=== PATIENT | male | born 1990 | race Caucasian/White ===

== ENCOUNTER 2016-09-06 20:48 | Inpatient (IN) ==
--- NOTE | 2016-09-06 22:26 | Emergency Department Note ---
Disposition Clinical Impression: Pain and swelling of left ankle Disposition: Admitted As Inpatient Condition: Good Time of Disposition: 07:23 Lower Extremity Injury HPI - General Chief Complaint: ED Extremity Injury, Lower Stated Complaint: left ankle injury 3 days ago Time Seen by Provider: 09/06/16 22:08 Source: patient Limitations: no limitations Nursing Notes Reviewed: Yes Vital Signs Reviewed: Yes - History of Present Illness Pt Subjective Complaint: ankle injury Injury location: Left ankle Onset (ago): day(s) Mechanism of Injury: unknown Context: other (was laying supine working under car and pushed hit foot against wheel causing it to twist and jam under the wheel; no crush injury) Place: home Worsens with: weight bearing, movement, palpation Associated symptoms: Reports: swelling, other (erythema) Treatments prior to arrival: splint - Related Data Home Medications Medication Instructions Recorded Confirmed Buprenorphine HCl/Naloxone HCl 1 film PO BID 09/07/16 09/07/16 [Suboxone 8 mg-2 mg Sl Film] Allergies Allergy/AdvReac Type Severity Reaction Status Date / Time No Known Allergies Allergy Verified 09/07/16 07:31 All systems ED: reviewed and negative except as stated. Constitutional: Reports: fever, chills Eyes: Denies: eye discharge ENT ED: Denies: throat pain Cardiovascular: Denies: chest pain, palpitations Respiratory: Denies: cough, dyspnea, wheezes Gastrointestinal: Denies: abdominal pain, nausea, vomiting Genitourinary: Denies: dysuria Musculoskeletal: Denies: back pain, neck pain Integumentary: Denies: rash Neurological: Denies: headache Psychiatric: Denies: anxiety Endocrine: Denies: fatigue Hematological/Lymphatic: Denies: easy bleeding Allergic/Immunologic: Denies: facial swelling Past Medical History - Past Medical History Medical history: Reports: no medical history Psychiatric history: Reports: no psych history - Social History Smoking Status: Current every day smoker Smokeless Tobacco Status: No Alcohol use: Reports: none Drug use: Reports: none Physical Exam - General Limitations: no limitations General appearance: alert, in no apparent distress - Head Head exam: normocephalic - Eye Eye exam: Present: EOMI - ENT ENT exam: mucous membranes moist - Neck Neck exam: Present: full ROM - Chest Chest inspection: Present: symmetric chest wall rise - Respiratory Respiratory exam: Absent: respiratory distress - Cardiovascular Cardiovascular exam: Present: normal rhythm - Abdominal Exam Abdominal exam: Present: soft, Non-Tender - Expanded Lower Extremity Exam Hip/Pelvis exam: Present: full ROM Upper leg exam: Present: full ROM Knee exam: Present: normal inspection, full ROM. Absent: tenderness Lower leg exam: Present: normal inspection, full ROM. Absent: tenderness Ankle exam: Present: tenderness (Lateral malleolus), swelling (Lateral malleolus ), erythema (Lateral malleolus). Absent: full ROM (Active passive range of motion limited due to pain) Foot/toe exam: Present: normal inspection, full ROM. Absent: tenderness Neurovascular/Tendon exam: Present: normal capillary refill. Absent: pulse deficit, motor deficit, sensory deficit Gait: observed and limited by pain - Back Exam Back exam: Present: full ROM - Neurological Exam Neurological exam: Present: alert, oriented X3 - Psychiatric Psychiatric exam: Present: normal affect, normal mood, depressed - Skin Skin exam: Present: warm, dry, intact, normal color. Absent: rash, cyanosis, diaphoresis Course Course Narrative: 26-year-old male smoker presents with left ankle pain. He states he had injured this ankle approximately 3 days ago. Car. He describes anxiety pain working underneath a car and went to push off with his foot against the tire which then twisted and jammed and are ruled out forcefully. He states the pain at that time was around 110. His pain is worsened now to 6 out of 10 and is kept in with redness and swelling to his prior visit to the emergency department. He said the pain has not improved while using a walking boot or after he applied a bandage. X-rays were ordered upon triage. I reviewed the images and radiology report negative for any osseous abnormalities. Patient seen and examined. Swelling and erythema to the lateral malleolus. Range of motion is limited due to pain. There is also warmth. Patient also has subjective fevers. He also describes the pain and swelling worsening since the injury, most notably yesterday and today. Does not have any previous diagnosis of diabetes however does mention recent increase in urination. Denies any previous infections, or illnesses. With negative x-rays, and atypical mechanism of injury for neck sprain, this point I feel patient's ankle pain which is worsening is concerning for septic joint. Her initial lab work, an Accu-Chek to evaluate for diabetes. Analgesics ordered. - Reevaluation(s) Reevaluation #1: This time patient's lab work is now available. There is a delay in the results of the CBC. Patient does have a slightly elevated white count, as well as an elevated CRP and sedimentation rate. Orthopedics page, for consult for possible septic joint. Time: 01:39 Reevaluation #2: Hospitalist was paged and I discussed patient with hospitalist Dr. Barillas. He is agreeable to admission, however he first requests BMP before accepting. Time: 02:42 Reevaluation #3: Metabolic panel within normal limits. Discussed with Dr. Barillas, who agreed to accept patient. We will also order consults for orthopedics, as well as IR for joint aspiration. IV antibiotics and pain medications ordered. At this time nursing is re-attempting IV placement. Time: 03:01 - Consultations Consultation #1: Pt discussed with Dr. Shin, who advised admission to hospitalist service and agreed to consult tomorrow. He agreed for IV Rocephin and vancomycin. He also has requested IR consult for joint aspiration, which he stated can be done tomorrow sometime. Vital Signs Temperature 99 F 09/06/16 21:01 Pulse Rate 100 09/06/16 21:01 Respiratory Rate 21 09/06/16 21:01 Blood Pressure 150/83 09/06/16 21:01 O2 Sat by Pulse Oximetry 96 09/06/16 21:01 Temperature 97.5 F L 09/07/16 14:44 Pulse Rate 54 09/07/16 14:44 Respiratory Rate 18 09/07/16 14:44 Blood Pressure 143/79 09/07/16 14:44 O2 Sat by Pulse Oximetry 96 09/07/16 14:44 Oxygen Delivery Oxygen Delivery Room Air Extremity Injury, Lower - MDM Narrative Medical decision making narrative: Pt presented with left ankle pain and swelling. She did have an injury approx 3 days ago while he was working on his car. On that day and the following day he was able to ambulate and bear weight with what he described as minimal pain. He states yesterday and today pain, swelling, and redness have worsened. On exam there was warmth, swelling, and pain with ROM, and patient states difficulty bearing weight. Xrays negative for fractures. He has had subjective fevers. Initial HR on triage today was 100. Concern for sceptic joint due to worsening pain and swelling. 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 he does mention a foot infection in his right foot one year ago. Elevated WBC, CRP, SED, and normal uric acid. Pt discussed with Dr. Byrnes who also had facetime with pt and agreed with dec to admit. Pt discussed with Dr. Shin who requested admission to hospitalist and agreed to see patient tomorrow, IV antibiotics, and likely joint aspiration with IR. Pt accepted by hospitalists. IV placed and pt has received analgesics and IV abx are ordered. Pt safe for transfer to inpatient eval and further treatment. All Lab Results (24 Hours) 09/06/16 09/06/16 09/06/16 Range/Units 22:43 23:11 23:11 WBC (4.3-11.1) K/mcL RBC (4.19-5.50) M/mcL Hgb (12.9-16.9) g/dL Hct (37.5-50.1) % MCV (83.0-100.0) fL MCH (28.0-33.3) pg MCHC (31.6-35.5) g/dL RDW (11.5-14.5) % Plt Count (140-400) K/mcL MPV (9.4-12.4) fL Immature Gran % (0-4) % Seg Neutrophils % % Lymphocytes % % Monocytes % % Eosinophils % % Basophils % % Neutrophils # (1.6-8.9) K/mcL Lymphocytes # (0.6-4.6) K/mcL Monocytes # (0.0-1.3) K/mcL Eosinophils # (0.0-0.6) K/mcL Basophils # (0.0-0.2) K/mcL Reactive Lymphocytes (Not Present) Platelet Estimate (Normal) ESR (0-10) mm/hr Sodium 134 L (136-145) mEq/L Potassium 4.4 (3.5-4.5) mEq/L Chloride 103 (98-109) mEq/L Carbon Dioxide 17 L (19-29) mEq/L BUN 12 (8-26) mg/dL Creatinine 1.01 (0.72-1.25) mg/dL Est GFR ( Amer) > 60 (> 60) Est GFR (Non-Af Amer) > 60 (> 60) BUN/Creatinine Ratio 12 (6-26) Glucose 101 H (70-99) mg/dL POC Glucose 114 H (58-89) Calculated Osmolality 278 L (280-300) Uric Acid 6.2 (3.5-7.2) mg/dL Calcium 9.5 (8.6-10.8) mg/dL C-Reactive Protein 77 H (Less than 5) mg/L 09/07/16 09/07/16 Range/Units 00:15 00:15 WBC 12.7 H (4.3-11.1) K/mcL RBC 4.71 (4.19-5.50) M/mcL Hgb 13.0 (12.9-16.9) g/dL Hct 37.6 (37.5-50.1) % MCV 79.8 L (83.0-100.0) fL MCH 27.6 L (28.0-33.3) pg MCHC 34.6 (31.6-35.5) g/dL RDW 13.4 (11.5-14.5) % Plt Count 163 (140-400) K/mcL MPV 11.6 (9.4-12.4) fL Immature Gran % 0.8 (0-4) % Seg Neutrophils % 57.8 % Lymphocytes % 26.6 % Monocytes % 11.7 % Eosinophils % 2.6 % Basophils % 0.5 % Neutrophils # 7.3 (1.6-8.9) K/mcL Lymphocytes # 3.4 (0.6-4.6) K/mcL Monocytes # 1.5 H (0.0-1.3) K/mcL Eosinophils # 0.3 (0.0-0.6) K/mcL Basophils # 0.1 (0.0-0.2) K/mcL Reactive Lymphocytes Present A (Not Present) Platelet Estimate Normal (Normal) ESR 48 H (0-10) mm/hr Sodium (136-145) mEq/L Potassium (3.5-4.5) mEq/L Chloride (98-109) mEq/L Carbon Dioxide (19-29) mEq/L BUN (8-26) mg/dL Creatinine (0.72-1.25) mg/dL Est GFR ( Amer) (> 60) Est GFR (Non-Af Amer) (> 60) BUN/Creatinine Ratio (6-26) Glucose (70-99) mg/dL POC Glucose (58-89) Calculated Osmolality (280-300) Uric Acid (3.5-7.2) mg/dL Calcium (8.6-10.8) mg/dL C-Reactive Protein (Less than 5) mg/L Ankle X-Ray 09/06/16 21:05 IMPRESSION: No acute osseous abnormality. D/ / Tomas Hernandez MD / Tomas Hernandez MD Interpreting Provider: Tomas Hernandez MD Foot X-Ray 09/06/16 21:05 IMPRESSION: No acute osseous abnormality. D/ / Tomas Hernandez MD / Tomas Hernandez MD Interpreting Provider: Tomas Hernandez MD - Lab Data Lab results reviewed: Yes I reviewed the patient's lab results. Result diagrams: 09/07/16 00:15 09/06/16 23:11 Lab Results 09/06/16 09/06/16 09/06/16 Range/Units 22:43 23:11 23:11 WBC (4.3-11.1) K/mcL RBC (4.19-5.50) M/mcL Hgb (12.9-16.9) g/dL Hct (37.5-50.1) % MCV (83.0-100.0) fL MCH (28.0-33.3) pg MCHC (31.6-35.5) g/dL RDW (11.5-14.5) % Plt Count (140-400) K/mcL MPV (9.4-12.4) fL Immature Gran % (0-4) % Seg Neutrophils % % Lymphocytes % % Monocytes % % Eosinophils % % Basophils % % Neutrophils # (1.6-8.9) K/mcL Lymphocytes # (0.6-4.6) K/mcL Monocytes # (0.0-1.3) K/mcL Eosinophils # (0.0-0.6) K/mcL Basophils # (0.0-0.2) K/mcL Reactive Lymphocytes (Not Present) Platelet Estimate (Normal) ESR (0-10) mm/hr Sodium 134 L (136-145) mEq/L Potassium 4.4 (3.5-4.5) mEq/L Chloride 103 (98-109) mEq/L Carbon Dioxide 17 L (19-29) mEq/L BUN 12 (8-26) mg/dL Creatinine 1.01 (0.72-1.25) mg/dL Est GFR ( Amer) > 60 (> 60) Est GFR (Non-Af Amer) > 60 (> 60) BUN/Creatinine Ratio 12 (6-26) Glucose 101 H (70-99) mg/dL POC Glucose 114 H (58-89) Calculated Osmolality 278 L (280-300) Uric Acid 6.2 (3.5-7.2) mg/dL Calcium 9.5 (8.6-10.8) mg/dL C-Reactive Protein 77 H (Less than 5) mg/L Synovial Source Synovial Color (Straw) Synovial Appearance (Clear-Hazy) Synovial Volume mL Synovial RBC (0.000 - 0.002) M/mcl Synovial Tot Nuc Cell (0-200) TNC/mcL Synovial Band Neuts Synovial Basophils Synovial Eosinophils Synovial Seg Neuts % % Synovial Lymphocytes % % Synovial Monocytes % Synovial Other Cells % Synovial Crystals (None Seen) 09/07/16 09/07/16 09/07/16 Range/Units 00:15 00:15 06:54 WBC 12.7 H (4.3-11.1) K/mcL RBC 4.71 (4.19-5.50) M/mcL Hgb 13.0 (12.9-16.9) g/dL Hct 37.6 (37.5-50.1) % MCV 79.8 L (83.0-100.0) fL MCH 27.6 L (28.0-33.3) pg MCHC 34.6 (31.6-35.5) g/dL RDW 13.4 (11.5-14.5) % Plt Count 163 (140-400) K/mcL MPV 11.6 (9.4-12.4) fL Immature Gran % 0.8 (0-4) % Seg Neutrophils % 57.8 % Lymphocytes % 26.6 % Monocytes % 11.7 % Eosinophils % 2.6 % Basophils % 0.5 % Neutrophils # 7.3 (1.6-8.9) K/mcL Lymphocytes # 3.4 (0.6-4.6) K/mcL Monocytes # 1.5 H (0.0-1.3) K/mcL Eosinophils # 0.3 (0.0-0.6) K/mcL Basophils # 0.1 (0.0-0.2) K/mcL Reactive Lymphocytes Present A (Not Present) Platelet Estimate Normal (Normal) ESR 48 H (0-10) mm/hr Sodium (136-145) mEq/L Potassium (3.5-4.5) mEq/L Chloride (98-109) mEq/L Carbon Dioxide (19-29) mEq/L BUN (8-26) mg/dL Creatinine (0.72-1.25) mg/dL Est GFR ( Amer) (> 60) Est GFR (Non-Af Amer) (> 60) BUN/Creatinine Ratio (6-26) Glucose (70-99) mg/dL POC Glucose (58-89) Calculated Osmolality (280-300) Uric Acid (3.5-7.2) mg/dL Calcium (8.6-10.8) mg/dL C-Reactive Protein (Less than 5) mg/L Synovial Source left ankle joint Synovial Color Straw (Straw) Synovial Appearance Cloudy (Clear-Hazy) Synovial Volume 4.0 mL Synovial RBC < 0.002 (0.000 - 0.002) M/mcl Synovial Tot Nuc Cell 85991 H (0-200) TNC/mcL Synovial Band Neuts TNP Synovial Basophils TNP Synovial Eosinophils TNP Synovial Seg Neuts % 96.0 % Synovial Lymphocytes % 4.0 % Synovial Monocytes % TNP Synovial Other Cells % TNP Synovial Crystals No Crystals Seen (None Seen) - Radiology Data Radiology results reviewed: Yes I reviewed the patient's radiology results. Attestation Statement - Attestation Attestation: See my additional emergency department note from this visit.
[2016-09-06] MEDS ORDERED: Ibuprofen 600 MG TABLET PO ONE (22:30)
[2016-09-06] MEDS ORDERED: Acetaminophen 325 MG TABLET PO ONE (22:30)
[2016-09-06 23:38] LABS: Uric Acid 6.2 mg/dL (3.5-7.2)
[2016-09-07 00:21] LABS: Basophils # 0.1 K/mcL (0.0-0.2); Basophils % 0.5 %; Eosinophils # 0.3 K/mcL (0.0-0.6); Eosinophils % 2.6 %; Hematocrit 37.6 % (37.5-50.1); Immature Granulocytes % 0.8 % (0-4); Lymphocytes # 3.4 K/mcL (0.6-4.6); Lymphocytes % 26.6 %; Mean Corpuscular HGB Conc 34.6 g/dL (31.6-35.5); Mean Corpuscular Hemoglobin 27.6 pg (28.0-33.3); Mean Corpuscular Volume 79.8 fL (83.0-100.0); Mean Platelet Volume 11.6 fL (9.4-12.4); Monocytes # 1.5 K/mcL (0.0-1.3); Monocytes % 11.7 %; Neutrophils # 7.3 K/mcL (1.6-8.9); Platelet Count 163 K/mcL (140-400); Red Blood Count 4.71 M/mcL (4.19-5.50); Red Cell Distribution Width 13.4 % (11.5-14.5); Segmented Neutrophils % 57.8 %
[2016-09-07 00:56] LABS: Platelet Estimate Normal (Normal)
[2016-09-07 00:57] LABS: Reactive Lymphocytes Present (Not Present)
[2016-09-07 02:44] LABS: BUN/Creatinine Ratio 12 (6-26); Blood Urea Nitrogen 12 mg/dL (8-26); Calcium 9.5 mg/dL (8.6-10.8); Carbon Dioxide 17 mEq/L (19-29); Chloride 103 mEq/L (98-109); Glucose 101 mg/dL (70-99); Osmolality,Calculated 278 (280-300); Potassium 4.4 mEq/L (3.5-4.5); Sodium 134 mEq/L (136-145); eGFR For African Americans > 60 (> 60); eGFR For Non-African Americans > 60 (> 60)
[2016-09-07] MEDS ORDERED: Vancomycin 1,000 MG in D5% in Water 250 ML IVPB ONE (02:59)
[2016-09-07] MEDS ORDERED: Ketorolac 15 MG/ML VIAL IVP ONE (02:59)
--- NOTE | 2016-09-07 03:08 | Emergency Department Note ---
- Attending Attestation I, Anthony Byrnes MD, personally performed a history and physical exam of the patient and Dr. their management with the midlevel provicer, PAC/MEDICAID ANALYST. I reviewed the midlevel provider's note and agree with the documented findings, medical decision making, and plan of care. 26-year-old male presents to the emergency department with a complaint that he injured his left ankle 3 days prior to arrival. 2 days ago the ankle was fine and he was able to work on it. Yesterday he developed some swelling and pain in the ankle which is gotten progressively worse. He has redness over the lateral aspect of the ankle and has had intermittent fever. On examination patient is a well-developed well-nourished well-appearing young male in no acute distress. He is alert and oriented 3. There is no cyanosis or diaphoresis. There is moderate swelling over the left ankle diffusely with erythema and warmth to touch over the lateral malleolus. Marked diffuse tenderness to palpation. No lymphangitic streaking. Range of motion is limited secondary to pain and swelling. Normal neurovascular function distally. Labs reviewed. X-ray negative. Vance discussed the case with the orthopedist mortgage consultant, Dr. Shin, and he recommended admission by the hospitalist and he will consult on the patient in the morning. The hospitalist, Dr. Barillas, was then consulted and accepted admission of the patient.
[2016-09-07] MEDS ORDERED: *HR* Morphine 2 MG/ML SYRINGE IVP PRN (08:26)
[2016-09-07] MEDS ORDERED: Ibuprofen 600 MG TABLET PO ONE (08:26)
--- NOTE | 2016-09-07 08:31 | Internal Med History&Physical ---
Date of Encounter: 09/07/16 Time of Encounter: 08:29 Assessment and Plan (1) Ankle cellulitis Current visit: Yes Status: Acute Patient is having inflammatory signs in the left ankle suspicious of cellulitis so he will be started on vancomycin and Zosyn. My concern is the significant limitation of range of motion of the left ankle and therefore septic arthritis or other arthritic joint disease like gout or pseudogout has to be excluded. orthopedic surgery has been consultative and will evaluate the patient. Symptomatic treatment for his pain he will receive heparin and famotidine for DVT and peptic ulcer disease prophylaxis respectively. He is full code Internal Medicine - H&P: HPI Chief complaint: left ankle pain and swelling History of present illness: Mr. 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 Since Saturday about 5 days ago patient started noticing pain and tenderness warms and redness of the left ankle and foot. 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 He started noticing decreased range of motion at the left ankle. He is not checked his temperature but he feels that he has been having fevers and chills. His appetite is good. He denies any other joint infection. No prior history of arthritic joint disease like gout pseudogout etc. He is sexually active with his girlfriend only. He denies any open once. No skin rash. Past Med Surg Social Fam HX - Past Medical History Medical history: no medical history Psychiatric history: no psych history - Past Surgical History Surgical History: no surgical history - Social History Smoking Status: Current every day smoker Packs per day: 1/2 Smokeless Tobacco Status: No Alcohol use: none Drug use: none Internal Medicine - H&P: Meds Buprenorphine HCl/Naloxone HCl [Suboxone 8 mg-2 mg Sl Film] 1 film PO BID [History] Allergies No Known Allergies Allergy (Verified 09/07/16 07:31) All Systems PM: A 10-system review of systems was performed and is negative for pertinent findings except as documented above in the HPI. Review of systems: 10 point review of systems is negative except for HPI - Constitutional Vitals: Temp Pulse Resp BP Pulse Ox 97.5 F L 65 18 111/72 97 09/07/16 06:26 09/07/16 06:26 09/07/16 06:26 09/07/16 06:26 09/07/16 06:26 Exam: Gen.: patient is alert oriented not in distress. Cardiac: Normal S1 S2 no additional sounds or murmurs chest: clear to auscultation abdomen soft nontender nondistended normal bowel sounds lower extremity: Left ankle, red, slightly warmer, tender and swollen. Significant reduction of range of motion in left ankle neuro no focal deficit Internal Med - H&P Results - Labs CBC & Chem 7: 09/07/16 00:15 09/06/16 23:11
[2016-09-07] MEDS ORDERED: Vancomycin 1,500 MG in D5% in Water 250 ML IVPB SCH (09:00)
[2016-09-07] MEDS ORDERED: Piperacillin/Tazobactam 3.375 GM in D5% in Water (Mini-Bag+) 100 ML IVPB SCH (09:00)
[2016-09-07] MEDS: Famotidine 20 MG TABLET PO SCH (09:00)
[2016-09-07 10:19] LABS: Source,Synovial Fluid left ankle joint
[2016-09-07] MEDS: Vancomycin 1,500 MG in D5% in Water 250 ML IVPB SCH ×2 (10:43→23:27)
[2016-09-07 11:07] LABS: Color,Synovial Fluid Straw (Straw)
[2016-09-07 11:08] LABS: Appearance,Synovial Fluid Cloudy (Clear-Hazy)
--- NOTE | 2016-09-07 17:02 | Orthopedic Consult Note ---
Date of Encounter: 09/07/16 Time of Encounter: 16:54 History of Present Illness Chief complaint: Left ankle pain and swelling HPI: Mr. Ellis is a 26 year old male who states that 4 days ago he was working on his truck when he was attempting to kick out from underneath his vehicle and he injured his left ankle on the tire of the vehicle. He states that he did not feel too bad that day but the next day at work he noted increased pain and swelling of the lateral side of the ankle. After work that day he had progressively increased pain and swelling. He however continued to work. He states that he may have had a low-grade fever. Patient states that he has a 6 child at home. He feels he had viral symptoms more than a week ago. Denies any other acute symptoms. No shakes or chills. Patient is otherwise healthy individual. Patient states he feels much better since he had aspiration of the ankle earlier today. For complete history and physical data please refer to the completed portion of the medical record. Pertinent orthopedic examination this time shows swelling and tenderness about the lateral left ankle especially over the anterior talofibular ligament. No overt instability. There is mild diffuse swelling. No gross effusion at this time. Neurosensory exam is grossly intact. I reviewed x-rays of both the foot and ankle. I do not see any evidence of acute injury. No significant soft tissue swelling on those x-rays. White blood cell count was elevated at 12.7 with a normal differential. ESR was elevated at 48. CRP is 77. Fluoroscopic guided arthrocentesis of the ankle revealed a straw cloudy fluid with within 20,000 nucleated cells. There were no crystals seen. Gram stain of the fluid shows many white cells no evidence of bacteria. Culture is pending. Impression: Posttraumatic effusion and swelling left ankle, less likely a septic joint. Recommendation: I do not see any indication for urgent surgical intervention at this time. I will allow the patient to have dinner tonight and keep him nothing by mouth after midnight for intervention tomorrow if the culture results are positive. I discussed with the patient that a spontaneous joint infection in a healthy individual with no previous surgery is extremely rare. Continue with the IV antibiotics pending the culture results. Discussed with the patient elevation and staying off the extremity as possible. Thank you very much for allowing me to see and care for Mr. Ellis. Sincerely , Joey Shin,DO Past Med Surg Social Fam HX - Past Medical History Medical history: no medical history Psychiatric history: no psych history - Past Surgical History Surgical History: no surgical history - Social History Smoking Status: Current every day smoker Packs per day: 1/2 Smokeless Tobacco Status: No Alcohol use: none Drug use: none Medications and Allergies Buprenorphine HCl/Naloxone HCl [Suboxone 8 mg-2 mg Sl Film] 1 film PO BID [History] Allergies No Known Allergies Allergy (Verified 09/07/16 07:31) All Systems Reviewed: A 10-system review of systems was performed and is negative for pertinent findings except as documented above in the HPI. Physical Exam - Constitutional Vitals: Temp Pulse Resp BP Pulse Ox 97.5 F L 54 18 143/79 96 09/07/16 14:44 09/07/16 14:44 09/07/16 14:44 09/07/16 14:44 09/07/16 14:44 Results - Labs Result Diagrams: 09/07/16 00:15 09/06/16 23:11 Labs: Abnormal lab results WBC 12.7 K/mcL (4.3-11.1) H 09/07/16 00:15 MCV 79.8 fL (83.0-100.0) L 09/07/16 00:15 MCH 27.6 pg (28.0-33.3) L 09/07/16 00:15 Monocytes # 1.5 K/mcL (0.0-1.3) H 09/07/16 00:15 Reactive Lymphocytes Present (Not Present) A 09/07/16 00:15 ESR 48 mm/hr (0-10) H 09/07/16 00:15 Sodium 134 mEq/L (136-145) L 09/06/16 23:11 Carbon Dioxide 17 mEq/L (19-29) L 09/06/16 23:11 Glucose 101 mg/dL (70-99) H 09/06/16 23:11 POC Glucose 114 (58-89) H 09/06/16 22:43 Calculated Osmolality 278 (280-300) L 09/06/16 23:11 C-Reactive Protein 77 mg/L (Less than 5) H 09/06/16 23:11 Synovial Tot Nuc Cell 18684 TNC/mcL (0-200) H 09/07/16 06:54 All other labs normal. Consult Discharge Plan - Plan Referrals: NO,PCP [Primary Care Provider] -
[2016-09-07] MEDS ORDERED: D5% in Water (Mini-Bag+) 100 ML IVPB ONE ×2 (17:16→17:17)
[2016-09-07] MEDS: Piperacillin/Tazobactam 3.375 GM in D5% in Water (Mini-Bag+) 100 ML IVPB SCH (17:23)
[2016-09-07] MEDS: *HR* Heparin 5,000 UNIT/ML VIAL SQ SCH (17:24)
[2016-09-07] MEDS: Acetaminophen 325 MG TABLET PO PRN (20:36)
[2016-09-07] MEDS: (Buprenorphine Hcl/Naloxone Hcl [Suboxone 8 Mg-2 Mg S PO SCH (20:39)
[2016-09-08] MEDS: Piperacillin/Tazobactam 3.375 GM in D5% in Water (Mini-Bag+) 100 ML IVPB SCH (00:25)
[2016-09-08] MEDS: *HR* Heparin 5,000 UNIT/ML VIAL SQ SCH (05:28)
[2016-09-08] MEDS: Acetaminophen 325 MG TABLET PO PRN (05:31)
[2016-09-08 08:16] LABS: BUN/Creatinine Ratio 13 (6-26); Blood Urea Nitrogen 11 mg/dL (8-26); Calcium 9.6 mg/dL (8.6-10.8); Carbon Dioxide 15 mEq/L (19-29); Chloride 109 mEq/L (98-109); Glucose 118 mg/dL (70-99); Magnesium 2.3 mg/dL (1.6-2.6); Osmolality,Calculated 286 (280-300); Sodium 138 mEq/L (136-145); eGFR For African Americans > 60 (> 60); eGFR For Non-African Americans > 60 (> 60)
[2016-09-08 08:17] LABS: Potassium 4.8 mEq/L (3.5-4.5)
[2016-09-08 08:32] LABS: C-Reactive Protein 39 mg/L (Less than 5)
[2016-09-08 08:54] LABS: Basophils # 0.1 K/mcL (0.0-0.2); Basophils % 0.5 %; Eosinophils # 0.4 K/mcL (0.0-0.6); Eosinophils % 4.1 %; Hematocrit 36.4 % (37.5-50.1); Hemoglobin 12.8 g/dL (12.9-16.9); Immature Granulocytes % 0.8 % (0-4); Lymphocytes # 2.5 K/mcL (0.6-4.6); Lymphocytes % 24.9 %; Mean Corpuscular HGB Conc 35.2 g/dL (31.6-35.5); Mean Corpuscular Volume 79.6 fL (83.0-100.0); Mean Platelet Volume 11.7 fL (9.4-12.4); Monocytes # 0.8 K/mcL (0.0-1.3); Monocytes % 7.4 %; Neutrophils # 6.3 K/mcL (1.6-8.9); Platelet Count 197 K/mcL (140-400); Red Blood Count 4.57 M/mcL (4.19-5.50); Red Cell Distribution Width 13.6 % (11.5-14.5); Segmented Neutrophils % 62.3 %
[2016-09-08] MEDS: Famotidine 20 MG TABLET PO SCH (09:49)
[2016-09-08] MEDS: (Buprenorphine Hcl/Naloxone Hcl [Suboxone 8 Mg-2 Mg S PO SCH (09:50)
[2016-09-08] MEDS ORDERED: Sulfamethoxazole/Trimeth DS 1 EACH TABLET PO SCH (10:45)
[2016-09-08 11:18] VITALS: BP 130/84
[2016-09-08] MEDS ORDERED: Ibuprofen 600 MG TABLET PO PRN (11:51)
--- NOTE | 2016-09-08 13:13 | Orthopedics Progress Note ---
Date of Encounter: 09/08/16 Time of Encounter: 13:11 Subjective Principal diagnosis: Left ankle pain and swelling Interval history: Physician is seen in follow-up regarding his left ankle. He states the pain has improved considerably. Nice any shakes chills fevers etc. Vital signs are stable he is afebrile. Ankle is much improved. There is localized tenderness directly over the anterolateral ankle consistent with a sprain, probably high-grade of the anterior talofibular ligament. I do not appreciate an effusion. Laboratory data includes a normal white blood cell count without a shift. Sedimentation rate remains slightly elevated, CRP has decreased. Aspiration Gram stain was negative and culture 24 hours shows no growth. Impression: Acute left ankle sprain, doubt infectious process Recommendation: I discussed with the patient I would recommend that he continue to use a boot walker elevate the extremity. Antibiotics per medical service though will not need prolonged antibiotics for his ankle. I can follow up with him as an outpatient in regards to his ankle sprain. Objective Vital signs: Vital Signs Temp Pulse Resp BP Pulse Ox 09/08/16 11:09 98.3 F 84 18 130/84 97 09/08/16 06:48 98.2 F 65 18 135/69 98 09/07/16 23:41 98 F 91 17 107/74 99 09/07/16 20:28 98.3 F 82 17 104/65 99 09/07/16 14:44 97.5 F L 54 18 143/79 96 Intake and Output 09/07/16 09/08/16 09/08/16 23:59 07:59 15:59 Intake Total 100 / 100 100 / 100 0 / 0 Output Total 0 / 0 Balance 100 / 100 100 / 100 0 / 0 Intake: IV Fluids 100 / 100 100 / 100 Zosyn 3.375 GM In 100 / 100 100 / 100 Dextrose 5% (Minibag+) 100 ML 100 ML @ 25 mls/hr IVPB Q8HR LIZA Rx#: [id number] Oral 0 / 0 0 / 0 Output: Urine 0 / 0 Other: Meal NPO # Voids 1 Weight 101.5 kg Blood Glucose* 139 113 Patient Weight 09/08/16 23:59 Weight 101.5 kg - Labs CBC & BMP: 09/08/16 08:43 09/08/16 06:34 Labs: Abnormal lab results Hgb 12.8 g/dL (12.9-16.9) L 09/08/16 08:43 Hct 36.4 % (37.5-50.1) L 09/08/16 08:43 MCV 79.6 fL (83.0-100.0) L 09/08/16 08:43 Reactive Lymphocytes Present (Not Present) A 09/07/16 00:15 ESR 60 mm/hr (0-10) H 09/08/16 08:43 Potassium 4.8 mEq/L (3.5-4.5) H 09/08/16 06:34 Carbon Dioxide 15 mEq/L (19-29) L 09/08/16 06:34 Glucose 118 mg/dL (70-99) H 09/08/16 06:34 POC Glucose 113 (58-89) H 09/08/16 11:15 C-Reactive Protein 39 mg/L (Less than 5) H 09/08/16 06:34 Synovial Tot Nuc Cell 64748 TNC/mcL (0-200) H 09/07/16 06:54 Vancomycin Trough 8.2 mcg/mL (10-20) L 09/08/16 08:43 - VTE Documentation of Mechanical Device: Intermittent pneumatic compression device Consult Discharge Plan - Plan Referrals: NO,PCP [Primary Care Provider] -
--- NOTE | 2016-09-08 13:45 | Discharge Summary ---
Date of Encounter: 09/08/16 Time of Encounter: 10:35 - Discharge Diagnosis (1) Ankle swelling Priority: Primary Status: Acute Qualifiers: Laterality: left Qualified Code(s): M25.472 - Effusion, left ankle (2) Ankle cellulitis Priority: Secondary Status: Suspected (3) Left ankle sprain Priority: Secondary Status: Acute Qualifiers: Encounter type: initial encounter Involved ligament of ankle: unspecified ligament Qualified Code(s): S93.402A - Sprain of unspecified ligament of left ankle, initial encounter - Discharge Medications Prescriptions: Ibuprofen [Motrin] 600 mg PO Q8HR PRN #20 tablet PRN Reason: moderate pain Sulfamethoxazole/Trimeth DS [Bactrim Ds] 1 each PO BID #10 tablet Home Medications: Buprenorphine HCl/Naloxone HCl [Suboxone 8 mg-2 mg Sl Film] 1 film PO BID [History] Ibuprofen [Motrin] 600 mg PO Q8HR PRN #20 tablet 09/08/16 [Rx] Sulfamethoxazole/Trimeth DS [Bactrim Ds] 1 each PO BID #10 tablet 09/08/16 [Rx] Allergies/Adverse Reactions: Allergies No Known Allergies Allergy (Verified 09/07/16 07:31) Date of admission: 09/07/16 08:22 Primary care physician: PCP NO Consults: 09/07/16 02:56 Consult to Interventional Radiology [CONS] Routine Consulting Provider: Radiology Interventional Cols Reason for Consult: synovial fluid aspiration, sceptic arthritis Call Completed: No Consult to Orthopedic Surgery [CONS] Routine Consulting Provider: Orthopedic and Sports Medicine Reason for Consult: sceptic arthritis, ankle pain Call Completed: No 09/07/16 08:22 Consult to Occupational Therapy [CONS] Routine Comment: Evaluate, develop and implement POC Consult to Physical Therapy [CONS] Routine Comment: Evaluate, develop and implement POC Discharging clinician: Byron Manuel Anticipated date of discharge: 09/08/16 - Patient Status Disposition: Home, Self-Care Condition: Good Functional capacity at discharge: independent ambulation Overall status at discharge: patient is progressing back to baseline - Discharge Instructions Follow Up With: RU,PCP [Primary Care Provider] - Additional Instructions: Follow up with Dr. Shin as needed. Drink plenty of fluids while taking bactrim and ibuprofen. - Diet and Activity Activity: increase activity as tolerated, other (Use boot walker and elevate the extremity) Diet: regular diet Hospital course: Mr. Ellis is a 26 year old male patient with no significant medical problems was admitted here with swelling on the lateral malleolus region of the left ankle. There was concern for infection in this region and the patient underwent arthrocentesis and synovial fluid analysis showed does not show any signs of infection. Patient was evaluated by orthopedics and recommended to complete antibiotics that were started but it did not appear to be a joint infection. The patient feels much better today and is stable to be discharged home. He will follow up with orthopedics as needed. He does have underlying left ankle sprain and will need to wear boot walker as prescribed. - Time Spent with Patient Total time spent providing and/or coordinating discharge services: Less than 30 minutes (25 min) - Constitutional Vitals: Temp Pulse Resp BP Pulse Ox 98.3 F 84 18 130/84 97 09/08/16 11:09 09/08/16 11:09 09/08/16 11:09 09/08/16 11:09 09/08/16 11:09 General appearance: Present: cooperative, A&O X 3, pleasant, answers questions appropriately - Respiratory Respiratory exam: Present: CTAB. Absent: accessory muscle use, rales, rhonchi, wheezes - Extremities Exam Extremities exam: Present: warm, radial pulses palpable and symetrical. Absent : calf tenderness, cyanotic, pedal edema Additional comments: Swelling and redness in the left lateral malleolar region improving. Less tender to palpation - VTE Documentation of Mechanical Device: Intermittent pneumatic compression device - Attending Attestation This document has been at least partially created by [employer] recognition technology by Dr. Manuel. Errors in grammar, wording or other phrases may exist. If errors are found after the documentation is signed, they will be addressed individually in the addendum section of this document when appropriate.
[2016-09-08] MEDS ORDERED: Aminoglycoside Consult 1 EACH MC ONE (15:20)
== END 2016-09-08 15:21 | disposition home or self-care (01) | DRG 383 ==
LOC: 3NENU 20:48 → EMEROO 20:48 → 3NENU 09-07 04:47 → 3ANU 09-07 16:58
PROVIDERS: ADMIT Internal Medicine; ATTEND Internal Medicine

== ENCOUNTER 2017-10-14 19:21 | Observation (INO) ==
[2017-10-14] MEDS ORDERED: Isovue-370 500 ML INFUS..BTL IV ONE (23:34)
[2017-10-14] MEDS ORDERED: Piperacillin/Tazobactam 3.375 GM in 0.9 % Sodium Chloride Mini Bag 100 ML IVPB ONE (23:34)
[2017-10-14] MEDS ORDERED: *HR* OxyCODONE/APAP 5/325 TABLET PO ONE (23:35)
[2017-10-14] MEDS ORDERED: Clindamycin 600 MG/50 ML 600 MG/50 ML IV.SOLN IVPB ONE (23:35)
[2017-10-14] MEDS ORDERED: diazePAM 10 MG TABLET PO ONE (23:35)
[2017-10-14 23:40] LABS: BUN/Creatinine Ratio 19 (6-26); Blood Urea Nitrogen 16 mg/dL (6-20); Calcium 9.4 mg/dL (8.6-10.3); Carbon Dioxide 22 mEq/L (23-29); Chloride 106 mEq/L (98-107); Glucose 112 mg/dL (70-105); Osmolality,Calculated 292 (280-300); Potassium 4.2 mEq/L (3.5-5.1); Sodium 140 mEq/L (136-145); eGFR For African Americans > 60 (> 60); eGFR For Non-African Americans > 60 (> 60)
[2017-10-15 01:01] LABS: Basophils # 0.1 K/mcL (0.0-0.2); Basophils % 0.4 %; Eosinophils # 0.5 K/mcL (0.0-0.6); Eosinophils % 3.9 %; Hematocrit 36.5 % (37.5-50.1); Hemoglobin 12.5 g/dL (12.9-16.9); Immature Granulocytes % 0.6 % (0-4); Lymphocytes % 21.1 %; Mean Corpuscular HGB Conc 34.2 g/dL (31.6-35.5); Mean Corpuscular Hemoglobin 28.3 pg (28.0-33.3); Mean Corpuscular Volume 82.6 fL (83.0-100.0); Mean Platelet Volume 10.2 fL (9.4-12.4); Monocytes # 1.6 K/mcL (0.0-1.3); Monocytes % 11.6 %; Neutrophils # 8.7 K/mcL (1.6-8.9); Platelet Count 210 K/mcL (140-400); Red Blood Count 4.42 M/mcL (4.19-5.50); Red Cell Distribution Width 13.7 % (11.5-14.5); Segmented Neutrophils % 62.4 %
--- NOTE | 2017-10-15 02:45 | Emergency Department Note ---
Disposition Clinical Impression: Gluteal abscess Disposition: Admitted As Inpatient Condition: Good Referrals: NONE,PCP [Primary Care Provider] - Forms: ED Satisfaction Letter General Adult HPI - General Chief complaint: ED Skin/Abscess/Foreign Body Stated complaint: Softball size abscess-from Source: patient, family Limitations: no limitations Nursing Notes Reviewed: Yes Vital Signs Reviewed: Yes - History of Present Illness HPI Narrative: 27-year-old male who presents from urgent care with concern for a gluteal abscess. Apparently set progressing abscess for approximately one week today. Today he noticed that the abscess was more painful and larger. He has no history of diabetes. He has no fever or chills. His vital signs are stable on arrival. General: No acute distress HEENT: Pupils equal and reactive to light, extraoccular muscle movement is normal, TMS are clear bilaterally. Heart: RRR, No murmor rub or gallop Lungs: lungs clear, no wheezing, rales or ronchi. ABD: SNT, no focal areas or tenderness, no guarding or rebound tenderness. Extremities: No cyanosis, clubbing or edema Neuro: CN 2-12 in tact, no focal deficit. strength 5/5. Examined area shows a large abscess with spontaneous drainage of purulent material from the gluteal cleft extending into the perineum. Medical decision making This is a large gluteal abscess. Although there is no obvious tremble fluid collection on CT scan it is spontaneously draining at this time. There is surrounding cellulitis. I would start broad-spectrum antibiotics at this point. Mild leukocytosis. Plan to admit to surgical services for further antibiotic therapy and possible need for incision and drainage by surgical services. Pain Scale: 0 - Related Data Home Medications Medication Instructions Recorded Confirmed Buprenorphine HCl/Naloxone HCl 1 film PO BID 09/07/16 09/07/16 [Suboxone 8 mg-2 mg Sl Film] Vistaril 12/28/16 12/28/16 cephALEXin 12/28/16 Previous Rx's Medication Instructions Recorded Clindamycin HCl [Cleocin HCl] 300 mg PO TID #21 capsule 12/28/16 Allergies Allergy/AdvReac Type Severity Reaction Status Date / Time No Known Allergies Allergy Verified 10/14/17 19:35 All systems ED: reviewed and negative except as stated. Past Medical History - Past Medical History Medical history: Reports: no medical history Surgical history: Reports: no surgical history Psychiatric history: Reports: no psych history - Social History Smoking Status: Current every day smoker Smokeless Tobacco Status: No Alcohol use: Reports: none Drug use: Reports: marijuana Physical Exam - General Limitations: no limitations General appearance: alert Course Vital Signs Temperature 99.1 F 10/14/17 19:35 Pulse Rate 95 10/14/17 19:35 Respiratory Rate 18 10/14/17 19:35 Blood Pressure 124/71 10/14/17 19:35 O2 Sat by Pulse Oximetry 95 10/14/17 19:35 Temperature 99.1 F 10/14/17 19:35 Pulse Rate 95 10/14/17 19:35 Respiratory Rate 18 10/14/17 19:35 Blood Pressure 124/71 10/14/17 19:35 O2 Sat by Pulse Oximetry 95 10/14/17 19:35 Oxygen Delivery Oxygen Delivery Room Air Medical Decision Making - Lab Data Result diagrams: 10/15/17 00:50 10/14/17 23:16 Lab Results 10/14/17 10/15/17 Range/Units 23:16 00:50 WBC 14.0 H (4.3-11.1) K/mcL RBC 4.42 (4.19-5.50) M/mcL Hgb 12.5 L (12.9-16.9) g/dL Hct 36.5 L (37.5-50.1) % MCV 82.6 L (83.0-100.0) fL MCH 28.3 (28.0-33.3) pg MCHC 34.2 (31.6-35.5) g/dL RDW 13.7 (11.5-14.5) % Plt Count 210 (140-400) K/mcL MPV 10.2 (9.4-12.4) fL Immature Gran % 0.6 (0-4) % Seg Neutrophils % 62.4 % Lymphocytes % 21.1 % Monocytes % 11.6 % Eosinophils % 3.9 % Basophils % 0.4 % Neutrophils # 8.7 (1.6-8.9) K/mcL Lymphocytes # 3.0 (0.6-4.6) K/mcL Monocytes # 1.6 H (0.0-1.3) K/mcL Eosinophils # 0.5 (0.0-0.6) K/mcL Basophils # 0.1 (0.0-0.2) K/mcL Sodium 140 (136-145) mEq/L Potassium 4.2 (3.5-5.1) mEq/L Chloride 106 (98-107) mEq/L Carbon Dioxide 22 L (23-29) mEq/L BUN 16 (6-20) mg/dL Creatinine 0.85 (0.70-1.30) mg/dL Est GFR ( Amer) > 60 (> 60) Est GFR (Non-Af Amer) > 60 (> 60) BUN/Creatinine Ratio 19 (6-26) Glucose 112 H (70-105) mg/dL Calculated Osmolality 292 (280-300) Calcium 9.4 (8.6-10.3) mg/dL
[2017-10-15] MEDS: 0.9 % Sodium Chloride 1,000 ML IVC SCH ×2 (05:29→15:13)
[2017-10-15] MEDS ORDERED: Naloxone 0.4 MG/ML INJ IVP PRN ×2 (07:38→17:51)
[2017-10-15] MEDS ORDERED: *HR* Metoprolol 5 MG/5 ML VIAL IVP PRN ×2 (07:38→17:51)
[2017-10-15] MEDS ORDERED: *HR* Promethazine 25 MG/ML VIAL IVP PRN ×2 (07:38→17:51)
[2017-10-15] MEDS: Piperacillin/Tazobactam 3.375 GM in 0.9 % Sodium Chloride Mini Bag 100 ML IVPB SCH ×3 (08:25→23:57)
[2017-10-15] MEDS ORDERED: Pantoprazole 40 MG VIAL IVP SCH (09:00)
--- NOTE | 2017-10-15 10:14 | General Surg History&Physical ---
Date of Encounter: 10/15/17 Time of Encounter: 07:40 History of Present Illness Chief complaint: R gluteal pain HPI: Mr. Ellis is a 27 year old male who presents from urgent care with concern for a gluteal abscess. Apparently set progressing abscess for approximately one week today. Today he noticed that the abscess was more painful and larger. He has no history of diabetes. He has no fever or chills. His vital signs are stable on arrival. CT of the pelvis with contrast revealed inflammatory changes along the medial right gluteal fold with suspected early developing abscess. Patient was started on clindamycin and vancomycin the ED (currently on zosyn). Today he says pain is improved from an 8 out of 10 to a 4 out of 10 in the right lower buttocks. Still admits to some drainage from the wound. Denies any fever, nausea, vomiting. No bowel movements in it since admission but admits to passing gas. Denies any diarrhea or constipation. Past Med Surg Social Fam HX - Past Medical History Medical history: no medical history Psychiatric history: no psych history - Past Surgical History Surgical History: no surgical history - Social History Smoking Status: Current every day smoker Smokeless Tobacco Status: Yes Alcohol use: none Drug use: none - Family History Father Hx Family Cardiac Disorders: Yes Mother Hx Family Endocrine Disorder: Yes (Diabetes) Medications and Allergies Buprenorphine HCl/Naloxone HCl [Buprenorphin-Naloxon 8-2 mg Sl] 1 tab PO BID 01/25 [History] 3 Allergy/AdvReac Type Severity Reaction Status Date / Time No Known Allergies Allergy Verified 10/14/17 19:35 Review of Systems All systems PM: reviewed and no additional remarkable complaints except as stated All systems PM: The remainder of the systems were reviewed and are negative General Surgery Exam VITAL SIGNS: Reviewed. See [facility] GENERAL: No apparent distress. HEENT: [Normocephalic, PER, EOMi, oropharynx pink/moist, no JVD noted.] CV: b/l rad pulses 2+, RRR, no murmurs or gallops, no JVD RESPIRATORY: CTAB without wheezes, rales, or rhonchi ABD: soft, non-tender, no rebound/guarding/rigidity, no peritoneal signs EXTREMITY: grossly normal motor function, no pedal edema, peripheral pulses 2+ b /l NEUROLOGIC EXAM: AOx3, obeys commands, no speech deficits. PSYCHIATRIC: normal mood and affect SKIN: 4 x 3 cm area of induration in the right lower buttocks. Signs of erythema. Tenderness to palpation. No signs of bleeding. Signs of drainage. Initial Vital Signs Temp Pulse Resp BP Pulse Ox 99.1 F 95 18 124/71 95 10/14/17 19:35 10/14/17 19:35 10/14/17 19:35 10/14/17 19:35 10/14/17 19:35 Results - Labs 10/15/17 00:50 10/14/17 23:16 Abnormal lab results WBC 14.0 K/mcL (4.3-11.1) H 10/15/17 00:50 Hgb 12.5 g/dL (12.9-16.9) L 10/15/17 00:50 Hct 36.5 % (37.5-50.1) L 10/15/17 00:50 MCV 82.6 fL (83.0-100.0) L 10/15/17 00:50 Monocytes # 1.6 K/mcL (0.0-1.3) H 10/15/17 00:50 Carbon Dioxide 22 mEq/L (23-29) L 10/14/17 23:16 Glucose 112 mg/dL (70-105) H 10/14/17 23:16 All other labs normal.
[2017-10-15] MEDS: OXYCODONE Oral CONC 10 MG/0.5 ML ORAL.SYG SL PRN ×3 (10:48→23:57)
--- NOTE | 2017-10-15 12:51 | General Surgery Consult Note ---
Date of Encounter: 10/15/17 Time of Encounter: 08:20 Assessment and Plan (1) Gluteal abscess Current Visit: Yes Status: Acute History of Present Illness Consult date: 10/15/17 Requesting physician: Kiet Alcazar History of present illness: 27-year-old male with a PMH of Hep C (2013) and IV drug use (clean for 2-3 years ) who presents from urgent care with concern for a gluteal abscess. Apparently has noticed it progressing for approximately one week today. Today he noticed that the abscess was more painful and larger. He has no history of diabetes. He has no fever or chills. His vital signs are stable on arrival. CT of the pelvis with contrast revealed inflammatory changes along the medial right gluteal fold with suspected early developing abscess. Patient was started on clindamycin and vancomycin the ED (currently on zosyn). Past Med Surg Social Fam HX - Past Medical History Medical history: no medical history Psychiatric history: no psych history - Past Surgical History Surgical History: no surgical history - Social History Smoking Status: Current every day smoker Smokeless Tobacco Status: Yes Alcohol use: none Drug use: none - Family History Father Hx Family Cardiac Disorders: Yes Mother Hx Family Endocrine Disorder: Yes (Diabetes) Medications and Allergies Buprenorphine HCl/Naloxone HCl [Buprenorphin-Naloxon 8-2 mg Sl] 1 tab PO BID 01/25 [History] 3 Allergy/AdvReac Type Severity Reaction Status Date / Time No Known Allergies Allergy Verified 10/14/17 19:35 Review of Systems All systems PM: The remainder of the systems were reviewed and are negative General Surgery Exam VITAL SIGNS: Reviewed. See [facility] GENERAL: No aparrent distress. HEENT: [Normocephalic, PER, EOMi, oropharynx pink/moist, no JVD noted.] CV: b/l rad pulses 2+, RRR, no murmurs or gallops, no JVD RESPIRATORY: CTAB without wheezes, rales, or rhonchi ABD: soft, non-tender, no rebound/guarding/rigidity, no peritoneal signs EXTREMITY: grossly normal motor function, no pedal edema, peripheral pulses 2+ b /l NEUROLOGIC EXAM: AOx3, obeys commands, no speech deficits. PSYCHIATRIC: normal mood and affect SKIN: 4 x 3 cm area of induration in the right lower buttocks. Signs of erythema. Tenderness to touch. No signs of bleeding. Signs of drainage when compressed. Initial Vital Signs Temp Pulse Resp BP Pulse Ox 99.1 F 95 18 124/71 95 10/14/17 19:35 10/14/17 19:35 10/14/17 19:35 10/14/17 19:35 10/14/17 19:35 Exam Initial Vital Signs Temp Pulse Resp BP Pulse Ox 99.1 F 95 18 124/71 95 10/14/17 19:35 10/14/17 19:35 10/14/17 19:35 10/14/17 19:35 10/14/17 19:35 Results - Labs 10/15/17 00:50 10/14/17 23:16 Abnormal lab results WBC 14.0 K/mcL (4.3-11.1) H 10/15/17 00:50 Hgb 12.5 g/dL (12.9-16.9) L 10/15/17 00:50 Hct 36.5 % (37.5-50.1) L 10/15/17 00:50 MCV 82.6 fL (83.0-100.0) L 10/15/17 00:50 Monocytes # 1.6 K/mcL (0.0-1.3) H 10/15/17 00:50 Carbon Dioxide 22 mEq/L (23-29) L 10/14/17 23:16 Glucose 112 mg/dL (70-105) H 10/14/17 23:16 All other labs normal. Consult Discharge Plan - Plan Referrals: NONE,PCP [Primary Care Provider] -
--- NOTE | 2017-10-15 15:29 | Anesthesia Evaluation PreOp ---
Date of Encounter: 10/15/17 Time of Encounter: 15:27 - Past History Planned Operation: I&D right perianal abcess Cardiac History: Denies any Significant Hx Pulmonary History: Denies Any Significant HX, Smoker SUBSTANCE ABUSE PREVENTION COORDINATOR History: Denies Any Significant HX Other Medical History: Denies Any Significant HX Anesthesia History: Past Anesthesia (denies PSH) Alcohol Use: none Drug use: none Medications and Allergies Buprenorphine HCl/Naloxone HCl [Buprenorphin-Naloxon 8-2 mg Sl] 1 tab PO BID 01/25 [History] 3 Allergy/AdvReac Type Severity Reaction Status Date / Time No Known Allergies Allergy Verified 10/14/17 19:35 - Meds/Allergy Pre-op Review Medications Reviewed: Yes Allergies Reviewed: Yes Beta Blockers on Current Med List: No Anesthesia Results - Labs 10/15/17 00:50 10/14/17 23:16 Anesthesia Exam Selected Entries 10/15/17 10:41 Temperature 98.8 F Pulse Rate 77 Respiratory Rate 16 Blood Pressure 121/73 O2 Sat by Pulse Oximetry 98 Oxygen Delivery Method Room Air Weight: 104kg NPO (# of Hours): 8 - HEENT Pupil (Motor): EOMI Mallampati: II Teeth: Normal Oral Opening: Greater than 3 - SUBSTANCE ABUSE PREVENTION COORDINATOR LOC: Oriented SUBSTANCE ABUSE PREVENTION COORDINATOR Motor: Normal RUE, Normal LUE, Normal RLE, Normal LLE, Normal Face SUBSTANCE ABUSE PREVENTION COORDINATOR Sensory: Normal: RUE, LUE, RLE, LLE, Face - Cardiac Rhythm: Regular Murmur: None - Pulmonary Breath Sounds: bilateral Clear Respiratory Effort: Symmetrical Anesthesia Assess/Plan ASA Score: 2 Modified Emerald Scale for Level of Consciousness: Cooperative, oriented, and tranquil Anesthetic Plan: General Monitoring Plan: Standard Monitors Recovery Plan: PACU (agrees to GA)
--- NOTE | 2017-10-15 15:46 | General Surg History&Physical ---
<Michael Rabago - Last Filed: 10/15/17 16:56> Date of Encounter: 10/15/17 Time of Encounter: 09:00 Assessment and Plan (1) Perianal abscess Current Visit: Yes Status: Acute - Continue zosyn. - Patient will be taken into the OR for incision and drainage. - Cultures will be obtained in the OR. History of Present Illness Chief complaint: Gluteal abscess HPI: 27-year-old male with a PMH of Hep C (2013) and IV adrug abuse (hasn't used for 2-3 years) who presents from urgent care with concern for a gluteal abscess for approximately one week today. Today he noticed that the abscess was more painful and larger. He has no history of diabetes. He has no fever or chills. His vital signs are stable on arrival. CT of the pelvis with contrast revealed inflammatory changes along the medial right gluteal fold with suspected early developing abscess. Patient was started on clindamycin and vancomycin the ED (currently on zosyn). When seen today, he says pain is improved from an 8 out of 10 to a 4 out of 10 in the right lower buttocks. Still admits to some drainage from the wound. Denies any fever, nausea, vomiting. No bowel movements in it since admission but admits to passing gas. Denies any diarrhea or constipation. Past Med Surg Social Fam HX - Past Medical History Medical history: no medical history Psychiatric history: no psych history - Past Surgical History Surgical History: no surgical history - Social History Smoking Status: Current every day smoker Smokeless Tobacco Status: Yes Alcohol use: none Drug use: none - Family History Father Hx Family Cardiac Disorders: Yes Mother Hx Family Endocrine Disorder: Yes (Diabetes) Medications and Allergies Buprenorphine HCl/Naloxone HCl [Buprenorphin-Naloxon 8-2 mg Sl] 1 tab PO BID 01/25 [History] 3 Allergy/AdvReac Type Severity Reaction Status Date / Time No Known Allergies Allergy Verified 10/14/17 19:35 Review of Systems All systems PM: The remainder of the systems were reviewed and are negative General Surgery Exam VITAL SIGNS: Reviewed. See [facility] GENERAL: No apparent distress. HEENT: [Normocephalic, PER, EOMi, oropharynx pink/moist, no JVD noted.] CV: b/l rad pulses 2+, RRR, no murmurs or gallops, no JVD RESPIRATORY: CTAB without wheezes, rales, or rhonchi ABD: soft, non-tender, no rebound/guarding/rigidity, no peritoneal signs EXTREMITY: grossly normal motor function, no pedal edema, peripheral pulses 2+ b /l NEUROLOGIC EXAM: AOx3, obeys commands, no speech deficits. PSYCHIATRIC: normal mood and affect SKIN: 4 x 3 cm area of induration in the right lower buttocks. Signs of erythema. tenderness to palpation. No signs of bleeding. Signs of drainage. Initial Vital Signs Temp Pulse Resp BP Pulse Ox 99.1 F 95 18 124/71 95 10/14/17 19:35 10/14/17 19:35 10/14/17 19:35 10/14/17 19:35 10/14/17 19:35 Results - Labs 10/15/17 00:50 10/14/17 23:16 Abnormal lab results WBC 14.0 K/mcL (4.3-11.1) H 10/15/17 00:50 Hgb 12.5 g/dL (12.9-16.9) L 10/15/17 00:50 Hct 36.5 % (37.5-50.1) L 10/15/17 00:50 MCV 82.6 fL (83.0-100.0) L 10/15/17 00:50 Monocytes # 1.6 K/mcL (0.0-1.3) H 10/15/17 00:50 Carbon Dioxide 22 mEq/L (23-29) L 10/14/17 23:16 Glucose 112 mg/dL (70-105) H 10/14/17 23:16 All other labs normal. <Gabby Gifford - Last Filed: 10/15/17 17:05> Date of Encounter: 10/15/17 Assessment and Plan (1) Leukocytosis Current Visit: Yes Status: Acute The assessment and plan as outlined above was discussed with the patient and/or family members who expressed understanding and agreement. All questions were answered. continue antibiotics trend wbc Qualifiers: Leukocytosis type: unspecified Qualified Code(s): D72.829 - Elevated white blood cell count, unspecified (2) Perianal abscess Current Visit: Yes Status: Acute The assessment and plan as outlined above was discussed with the patient and/or family members who expressed understanding and agreement. All questions were answered. discussed ct and labs with patient, will plan I/D right perianal abscess, risks and benefits discussed and he wishes to proceed antibiotics ivf hydration prn pain control, hold suboxone npo History of Present Illness HPI: Mr. Ellis is a 27 year old male who a week ago was washing in the shower and felt pain at the gluteal area and a small knot. Over the week the area has progressively gotten larger and more tender. He states the area is firm down to his scrotum. He has had drainage from the area for 2 days. He went to urgent care and they sent him to [place]. CT pelvis was done showing a small right perianal abscess. wbc elevated at 14. He was admitted and started on antibiotics Past Med Surg Social Fam HX - Past Medical History Source: patient - Social History Smoking Status: Current every day smoker Smokeless Tobacco Status: Yes Alcohol use: none Drug use: IV Drug Use (history of, clean for 4 years) Occupational status: employed Current living situation: Home - Independent Activity Level: Independent ambulation Review of Systems All systems PM: reviewed and no additional remarkable complaints except as stated All systems PM: The remainder of the systems were reviewed and are negative General Surgery Exam Initial Vital Signs Temp Pulse Resp BP Pulse Ox 99.1 F 95 18 124/71 95 10/14/17 19:35 10/14/17 19:35 10/14/17 19:35 10/14/17 19:35 10/14/17 19:35 - General physical appearance well nourished, no distress - Eyes PERRL, normal ocular movement - ENT normal mucosa, normocephalic - Neck trachea midline - Respiratory normal expansion - Cardiovascular Cardiovascular exam: Present: RRR - Rectum Rectum: Present: other (right perianal abscess/induration) - Neurologic Present: CN 2-12 grossly intact - Musculoskeletal Present: normal gait, normal posture - Psychiatric Psychiatric general surgery: Present: A&Ox3 Results - Labs 10/15/17 00:50 10/14/17 23:16 Abnormal lab results WBC 14.0 K/mcL (4.3-11.1) H 10/15/17 00:50 Hgb 12.5 g/dL (12.9-16.9) L 10/15/17 00:50 Hct 36.5 % (37.5-50.1) L 10/15/17 00:50 MCV 82.6 fL (83.0-100.0) L 10/15/17 00:50 Monocytes # 1.6 K/mcL (0.0-1.3) H 10/15/17 00:50 Carbon Dioxide 22 mEq/L (23-29) L 10/14/17 23:16 Glucose 112 mg/dL (70-105) H 10/14/17 23:16 All other labs normal. - Imaging CT scan - abdomen: report reviewed, image reviewed CT scan - pelvis: report reviewed, image reviewed - Attending Attestation I examined this patient and my medical decision-making was reviewed with the Resident Physician. I agree with the documented findings, disposition and treatment plan as described except to the extent set forth below.
[2017-10-15] MEDS ORDERED: *HR* FentaNYL (PF) 100 MCG/2 ML VIAL ONE ×2 (16:16→16:42)
[2017-10-15] MEDS ORDERED: *HR* Propofol 200 MG/20 ML VIAL IVP ONE (16:16)
[2017-10-15] MEDS ORDERED: *HR* Midazolam HCl 2 MG/2 ML VIAL ONE (16:16)
[2017-10-15] MEDS ORDERED: *HR* Succinylcholine 200 MG/10 ML VIAL IVP ONE (16:18)
[2017-10-15] MEDS ORDERED: *HR* Rocuronium Bromide 50 MG/5 ML VIAL ONE (16:25)
[2017-10-15] MEDS ORDERED: Ondansetron 4 MG/2 ML VIAL ONE (16:40)
[2017-10-15] MEDS ORDERED: Ketorolac 30 MG/ML VIAL ONE (16:40)
[2017-10-15] MEDS ORDERED: Dexamethasone 4 MG/ML VIAL ONE (16:40)
[2017-10-15] MEDS ORDERED: Ondansetron 4 MG/2 ML VIAL IVP ONE (16:49)
[2017-10-15] MEDS ORDERED: MORPHINE SUL Oral CONC 10 MG/0.5 ML ORAL.SYG SL PRN (16:49)
[2017-10-15] MEDS ORDERED: *HR* OxyCODONE Immed Rel 5 MG TABLET PO PRN (16:49)
[2017-10-15] MEDS ORDERED: *HR* HYDROmorphone 2 MG TABLET PO PRN (16:49)
--- NOTE | 2017-10-15 17:19 | Operative Note ---
Date of procedure: 10/15/17 Pre-op diagnosis: right perianal abscess Post-op diagnosis: same Procedure: Incision and drainage right perianal abscess Complications: none immediate Anesthesia: GETA Surgeon: Gabby Gifford Was there an porcelain buildup assistant present: No Carpentry Supervisor Other: Mathew Beckman Estimated blood loss (cc): 3 Specimen: aerobic/anaerobic cultures Condition: stable Disposition: PACU Procedure in Detail: Patient brought into operating suite on the transport cart. Sign in was performed and everyone was in agreement. Anesthesia was induced and patient was endotracheally intubated by anesthesia without incident. Patient was then placed prone on the operating table with all pressure points padded by foam and pillows. TinCoBen was applied to the bilateral buttocks and 2 inch silk tape were used for retraction and exposure. The perianal area was prepped and draped in the usual sterile fashion with Betadine. Timeout was performed again everyone was in agreement. There was a small draining sinus draining pus anterior to the right of the anus. At this area using an 11 blade an elliptical incision through the skin into the subcutaneous tissue was made. Purulent drainage resulted from the wound and a aerobic and anaerobic cultures were obtained. A hemostat was placed into the abscess to break up any loculations. The wound was irrigated with sterile saline. The abscess cavity was packed with half inch iodoform packing, covered with 4 x 4 gauze and secured with Medipore tape. Patient tolerated the procedure well. All lap and instrument counts were correct at the end of the case. Patient was then placed supine on the transport cart where he was awoken by anesthesia and extubated without incident. He was taken to PACU in stable condition.
--- NOTE | 2017-10-15 17:33 | Anesthesia Evaluation Post Op ---
Date of Encounter: 10/15/17 Time of Encounter: 17:33 Notes: Patient's vital signs have been reviewed. Patient is stable postoperatively and has adequately recovered from anesthesia. Patient is determined to have stable airway patency and respiratory function including respiratory rate and oxygen saturation. Patient has a stable heart rate, blood pressure and adequate hydration. Patients mental status is acceptable. Patients temperature is appropriate. Pain and nausea are adequately controlled. - Discharge PostOp Status: Transfer Patient to floor
[2017-10-15] MEDS: *HR* OxyCODONE/APAP 5/325 TABLET PO PRN (20:58)
[2017-10-16] MEDS: 0.9 % Sodium Chloride 1,000 ML IVC SCH ×3 (03:51→15:17)
[2017-10-16] MEDS: *HR* OxyCODONE/APAP 5/325 TABLET PO PRN ×2 (06:28→10:51)
[2017-10-16 07:39] LABS: BUN/Creatinine Ratio 20 (6-26); Blood Urea Nitrogen 14 mg/dL (6-20); Calcium 9.2 mg/dL (8.6-10.3); Carbon Dioxide 18 mEq/L (23-29); Chloride 108 mEq/L (98-107); Glucose 137 mg/dL (70-105); Osmolality,Calculated 283 (280-300); Potassium 4.7 mEq/L (3.5-5.1); Sodium 135 mEq/L (136-145); eGFR For African Americans > 60 (> 60); eGFR For Non-African Americans > 60 (> 60)
[2017-10-16 08:10] LABS: Basophils % 0.2 %; Eosinophils % 0.1 %; Hematocrit 35.5 % (37.5-50.1); Hemoglobin 12.6 g/dL (12.9-16.9); Immature Granulocytes % 0.5 % (0-4); Lymphocytes # 1.6 K/mcL (0.6-4.6); Lymphocytes % 10.5 %; Mean Corpuscular HGB Conc 35.5 g/dL (31.6-35.5); Mean Corpuscular Hemoglobin 29.5 pg (28.0-33.3); Mean Platelet Volume 11.3 fL (9.4-12.4); Monocytes # 1.1 K/mcL (0.0-1.3); Monocytes % 7.2 %; Neutrophils # 12.1 K/mcL (1.6-8.9); Platelet Count 206 K/mcL (140-400); Red Blood Count 4.27 M/mcL (4.19-5.50); Red Cell Distribution Width 13.2 % (11.5-14.5); Segmented Neutrophils % 81.5 %
--- NOTE | 2017-10-16 08:25 | General Surgery Progress Note ---
<Michael Rabago - Last Filed: 10/16/17 11:33> Date of Encounter: 10/16/17 Time of Encounter: 08:15 - Assessment and Plan (1) Perianal abscess Status: Acute Status post incision and drainage right perianal abscess. POD#1. Patient afebrile overnight. Pain well controlled with oxycodone. On day# 2 of zosyn. Incision shows no signs of bleeding, pus, or drainage. - Wound cultures pending. - Continue zosyn. - Sitz bath. - Continue pain medication. Subjective Narrative: Patient says pain has improved since yesterday. He still feels pain on L buttock when he lies down. He says he had one bowel movement yesterday. He denies any nausea or vomiting. Objective VITAL SIGNS: Reviewed. See [facility] GENERAL: No apparent distress. HEENT: [Normocephalic, PER, EOMi, oropharynx pink/moist, no JVD noted.] CV: b/l rad pulses 2+, RRR, no murmurs or gallops, no JVD RESPIRATORY: CTAB without wheezes, rales, or rhonchi ABD: soft, non-tender, no rebound/guarding/rigidity, no peritoneal signs INCISION: 2x3 cm incision in R lower peranal region. No signs of active bleeding, pus, or drainage. EXTREMITY: grossly normal motor function, no pedal edema, peripheral pulses 2+ b /l NEUROLOGIC EXAM: AOx3, obeys commands, no speech deficits. PSYCHIATRIC: normal mood and affect SKIN: no gross lesions, rashes, or skin changes Vital Signs - Last 8 Hours Temp Pulse Resp BP Pulse Ox 10/16/17 06:55 97.9 F 75 18 151/91 97 10/16/17 03:28 97.5 F L 69 16 112/62 94 Intake and Output 10/15/17 10/16/17 10/16/17 23:59 07:59 15:59 Intake Total 480 / 480 100 / 100 Output Total 653 / 653 600 / 600 Balance -173 / -173 -500 / -500 Intake: IV Fluids 100 / 100 Zosyn 3.375 GM In 0.9 % Sodium 100 / 100 Chloride (Mini-Bag +) 100 ML @ 25 mls/hr IVPB Q8HR [facility] Rx#: [id number] Oral 480 / 480 0 / 0 Output: Urine 650 / 650 600 / 600 Estimated Blood Loss Other: Meal Dinner Percent of Meal Consumed 100% Weight 104.3 kg Patient Weight 10/16/17 23:59 Weight 104.3 kg - Labs 10/16/17 07:31 10/16/17 06:18 Diabetes panel 10/16/17 Range/Units 06:18 Sodium 135 L (136-145) mEq/L Potassium 4.7 (3.5-5.1) mEq/L Chloride 108 H (98-107) mEq/L Carbon Dioxide 18 L (23-29) mEq/L BUN 14 (6-20) mg/dL Creatinine 0.70 (0.70-1.30) mg/dL Glucose 137 H (70-105) mg/dL Calcium 9.2 (8.6-10.3) mg/dL Calcium panel 10/16/17 Range/Units 06:18 Calcium 9.2 (8.6-10.3) mg/dL Pituitary panel 10/16/17 Range/Units 06:18 Sodium 135 L (136-145) mEq/L Potassium 4.7 (3.5-5.1) mEq/L Chloride 108 H (98-107) mEq/L Carbon Dioxide 18 L (23-29) mEq/L BUN 14 (6-20) mg/dL Creatinine 0.70 (0.70-1.30) mg/dL Glucose 137 H (70-105) mg/dL Calcium 9.2 (8.6-10.3) mg/dL Adrenal panel 10/16/17 Range/Units 06:18 Sodium 135 L (136-145) mEq/L Potassium 4.7 (3.5-5.1) mEq/L Chloride 108 H (98-107) mEq/L Carbon Dioxide 18 L (23-29) mEq/L BUN 14 (6-20) mg/dL Creatinine 0.70 (0.70-1.30) mg/dL Glucose 137 H (70-105) mg/dL Calcium 9.2 (8.6-10.3) mg/dL Consult Discharge Plan - Plan Instructions: Abscess (GEN), Sitz Bath (DC) Additional Instructions: Wound care- cleanse the wound with soap and water in the shower daily and pat dry. Complete a sitz bath at least 3 times per day and after bowel movements. Cover the wound with a dry dressing and taped to secure after shower and sitz bath. May resume normal activities as tolerated May shower and soak in a tub No driving until off narcotics and able to safely react in the car May climb stairs Complete course of antibiotic therapy as prescribed Referrals: Jordyn Paula, LEAD SOFTWARE QA ENGINEER [Advanced Practice Nurse] - 10/24/17 11:45 am (surgery follow-up) NONE,PCP [Primary Care Provider] - Prescriptions: Ibuprofen [Motrin] 800 mg PO Q8HR #40 tablet Docusate Sodium [Colace] 100 mg PO BID #30 capsule OxyCODONE/APAP 5/325 [Percocet 5/325 MG] 1 each PO Q6H PRN 7 Days #28 tablet PRN Reason: Pain Sulfamethoxazole/Trimeth DS [Bactrim DS] 1 each PO BID #20 tablet <Gabby Gifford - Last Filed: 10/17/17 08:42> Date of Encounter: 10/17/17 - Assessment and Plan (1) Leukocytosis Status: Acute Qualifiers: Leukocytosis type: unspecified Qualified Code(s): D72.829 - Elevated white blood cell count, unspecified (2) Perianal abscess Status: Acute Objective - Labs 10/16/17 07:31 10/16/17 06:18 - Attending Attestation patient was discharged home by nurse practitioner before I saw patient
[2017-10-16] MEDS: OXYCODONE Oral CONC 10 MG/0.5 ML ORAL.SYG SL PRN (08:30)
[2017-10-16] MEDS: Piperacillin/Tazobactam 3.375 GM in 0.9 % Sodium Chloride Mini Bag 100 ML IVPB SCH (08:31)
[2017-10-16] MEDS ORDERED: Pantoprazole 40 MG VIAL IVP SCH (09:00)
[2017-10-16 09:03] LABS: Mean Corpuscular Volume 83.1 fL (83.0-100.0)
[2017-10-16 10:48] VITALS: BP 140/76
--- NOTE | 2017-10-16 13:45 | Discharge Summary ---
Orders not resulted at time of discharge: Pending orders 10/15/17 17:15 Culture,Anaerobic [RM] Routine Culture,Wound [RM] Routine 10/17/17 04:00 BMP [Basic Metabolic Panel] AM 0400 CBC [Complete Blood Count] [HEME] AM 0400 Date of Encounter: 10/16/17 Time of Encounter: 13:40 - Discharge Diagnosis (1) Perianal abscess Priority: Primary Status: Acute General Surgery Exam Initial Vital Signs Temp Pulse Resp BP Pulse Ox 99.1 F 95 18 124/71 95 10/14/17 19:35 10/14/17 19:35 10/14/17 19:35 10/14/17 19:35 10/14/17 19:35 - General physical appearance well developed, well nourished, no distress - Eyes normal ocular movement - ENT normal mucosa, atraumatic, normocephalic - Neck trachea midline - Respiratory normal respiratory effort - Cardiovascular Cardiovascular exam: Present: RRR - Abdomen Abdomen general surgery: Present: bowel sounds present, soft, non tender - Incision Incision: Present: serosanguinous, open - Integumentary Integumentary general surgery: Present: warm and dry - Neurologic Present: CN 2-12 grossly intact - Psychiatric Psychiatric general surgery: Present: appropriate, oriented to person, oriented to place, oriented to time, speech is normal, memory intact - Hospital Course Hospital course: Mr. Ellis is a 27 year old male presents to the hospital with complaint of perianal pain associated with an abscess. The patient was admitted to the hospital and started on IV antibiotic therapy. He was taken to the operating room for an incision and drainage of a perianal abscess with Dr. Gifford. On postoperative day #1, the patient states that he feels much better. His pain is controlled. His vital signs are stable and he is afebrile. He is tolerating his diet without nausea or vomiting. The packing was removed and he will perform sitz baths 3 times per day and as needed if soiled. He will follow -up in the office next week for a wound check. - Time Spent with Patient Total time spent providing and/or coordinating discharge services: Less than 30 minutes - Discharge Medications Prescriptions: Ibuprofen [Motrin] 800 mg PO Q8HR #40 tablet OxyCODONE/APAP 5/325 [Percocet 5/325 MG] 1 each PO Q6H PRN 7 Days #28 tablet PRN Reason: Pain Sulfamethoxazole/Trimeth DS [Bactrim DS] 1 each PO BID #20 tablet Home Medications: Buprenorphine HCl/Naloxone HCl [Buprenorphin-Naloxon 8-2 mg Sl] 1 tab PO BID 01/25 [History] Ibuprofen [Motrin] 800 mg PO Q8HR #40 tablet 10/16/17 [Rx] OxyCODONE/APAP 5/325 [Percocet 5/325 MG] 1 each PO Q6H PRN 7 Days #28 tablet 02/25 [Rx] Sulfamethoxazole/Trimeth DS [Bactrim DS] 1 each PO BID #20 tablet 10/16/17 [Rx] Allergies/Adverse Reactions: 3 Allergy/AdvReac Type Severity Reaction Status Date / Time No Known Allergies Allergy Verified 10/14/17 19:35 Date of admission: 10/15/17 03:10 Primary care physician: PCP NONE Discharging clinician: Gabby Gifford ([facility]) Anticipated date of discharge: 10/16/17 Labs on day of discharge: Labs from last 24 hours 10/16/17 10/16/17 10/16/17 07:31 06:18 06:18 WBC 14.9 H RBC 4.27 Hgb 12.6 L Hct 35.5 L MCV 83.1 MCH 29.5 MCHC 35.5 RDW 13.2 Plt Count 206 MPV 11.3 Immature Gran % 0.5 Seg Neutrophils % 81.5 Lymphocytes % 10.5 Monocytes % 7.2 Eosinophils % 0.1 Basophils % 0.2 Neutrophils # 12.1 H Lymphocytes # 1.6 Monocytes # 1.1 Eosinophils # 0.0 Basophils # 0.0 Sodium 135 L Potassium 4.7 Chloride 108 H Carbon Dioxide 18 L BUN 14 Creatinine 0.70 Est GFR ( Amer) > 60 Est GFR (Non-Af Amer) > 60 BUN/Creatinine Ratio 20 Glucose 137 H Calculated Osmolality 283 Calcium 9.2 Specimen Rejected MCV Delta - Impressions ITS Impressions Pelvis CT 10/15/17 23:34 IMPRESSION: Inflammatory changes along the medial right gluteal fold with suspected early/developing abscess in the 6-12 o'clock position with respect to the anus. D/ / 10/15/2017 07:37:37 Florentin Cardona / Stefani Padron Interpreting Provider: Florentin Cardona - Patient Status Disposition: Home, Self-Care Condition: Good Overall status at discharge: patient is progressing back to baseline - Discharge Instructions Follow Up With: NONE,PCP [Primary Care Provider] - Jordyn Paula, JAVA SQL DEVELOPER [Advanced Practice Nurse] - 10/24/17 11:45 am (surgery follow-up) Additional Instructions: Wound care- cleanse the wound with soap and water in the shower daily and pat dry. Complete a sitz bath at least 3 times per day and after bowel movements. Cover the wound with a dry dressing and taped to secure after shower and sitz bath. May resume normal activities as tolerated May shower and soak in a tub No driving until off narcotics and able to safely react in the car May climb stairs Complete course of antibiotic therapy as prescribed - Diet and Activity Activity: increase activity as tolerated Diet: advance to your usual diet - Attending Attestation For this encounter, I have reviewed the CHEMICAL ANALYTICAL SAMPLER or PA documentation, treatment plan, and medical decision making; and I have had face to face time with this patient.
== END 2017-10-16 15:40 | disposition home or self-care (01) ==
LOC: 3ANU 19:21 → EMEROO 19:21 → 3ANU 10-15 04:01
PROVIDERS: ADMIT Surgery; ATTEND Surgery